=== PATIENT | male | born 1980 | race Caucasian/White ===

== ENCOUNTER 2019-12-15 05:08 | Emergency (ER) | payer OTHER, SELFPAY ==
[2019-12-15 05:11] VITALS: BP 138/102; PULSE 85; RESP 16; TEMP 36.7; O2SAT 95; BMI 43.2
--- NOTE | 2019-12-15 05:20 | W.ED.EYEPROB ---
HPI - Eye Problem General: Chief complaint: Eye Problems Stated complaint: EVAL Time Seen by Provider: 12/15/19 05:20 History of Present Illness: chief complaint: eye pain, eye redness and eye injury Onset (ago): day(s) (yesterday) Onset description: sudden Duration: constant Location: both eyes Eye Symptoms: burning, redness and pain Mechanism: UV exposure Severity: severe If Pain, Quality: burning Associated symptoms: Denies fever(s) Review of Systems Const: Denies: fever or chills Eyes: Reports: blurry vision, eye discomfort and eye redness ENMT: Denies: throat pain, ear pain, tinnitus or nasal discharge Card: Denies: chest pain or palpitations Resp: Denies: shortness of breath PFSH ED PFSH: Statuses (acute, chronic, etc) shown below reflect problem list status as previously entered and may not be historically accurate Social History Smoking and tobacco status: current some day smoker Physical Exam Const: GENERAL APPEARANCE: in distress ORIENTATION/CONSCIOUSNESS: Yes awake, Yes oriented to person, Yes oriented to place and Yes oriented to time HENMT: COMMON NORMALS: normocephalic, external nose normal and moist oral mucous membranes HEAD & SCALP: normocephalic FACE & SINUS: face symmetric NOSE: external nose normal Eye: COMMON NORMALS: PERRL and EOMs intact bilaterally PERIORBITAL: periorbital findings normal CORNEA: Yes fluorescein used PUPIL: Yes PERRL Chest: COMMONS NORMALS: inspection of chest normal Resp: COMMON NORMALS: clear to auscultation bilaterally AUSCULTATION: clear to auscultation bilaterally Cardio: COMMON NORMALS: regular rate and regular rhythm RATE: regular rate RHYTHM: regular rhythm GI: COMMON NORMALS: soft to palpation PALPATION: Yes soft Neuro: SENSORIUM/ORIENTATION: Yes oriented to person, Yes oriented to place and Yes oriented to time Course Vital Signs: Vital signs: Vital Signs Temperature 98.1 F 12/15/19 05:11 Pulse Rate 85 12/15/19 05:11 Respiratory Rate 16 12/15/19 05:11 Blood Pressure 138/102 12/15/19 05:11 Pulse Oximetry 95 12/15/19 05:11 Discharge Plan Discharge Patient Disposition: Home, Self-Care Clinical Impression: UV keratitis Qualifiers: Laterality: bilateral Qualified Code(s): H16.133 - Photokeratitis, bilateral Condition: Stable Prescriptions: New Percocet 7.5-325 mg tablet 1 tab PO Q6H PRN (Reason: pain) Qty: 7 RF: 0 erythromycin 5 mg/gram (0.5 %) ointment 1 applic ophthalmic (eye) Q6H 5 Days Qty: 3.5 RF: 0 No Action Prilosec OTC 20 mg Tablet,Delayed Release (Dr/Ec) 20 mg PO BID RF: 0 Discharge Orders: Discharge Order (Routine); Ordered 12/15/19 Ordered By: Zia Weldon Referrals: Hoang Vargas MD [Physician] - 1-3 days Edwina Linder ARNP [Family Provider] - Discharge Diet: Usual diet Discharge Activity: Increase activity as tolerated Patient Instructions: Corneal Flash Barrera (ED) Activity Restrictions/Additional Instructions: Call the ophthalmology clinic on [address] for a follow up appointment. Return for worsening pain despite treatment, worsening vision despite treatment, other concerning symptoms. Coding Level of Care Code ED Channel Marketing Coordinator for Devyn Varela
[2019-12-15] MEDS: tetracaine 0.5% Op Soln 4 mL Btl 1 DROP EYE-BOTH (05:30)
[2019-12-15] MEDS: fluorescein 1 mg Strip EYE-BOTH (05:30)
[2019-12-15 05:56] VITALS: RESP 12; O2SAT 98
[2019-12-15] MEDS: oxyCODONE-APAP 5-325 mg Tablet 2 TAB PO (05:56)
[2019-12-15 06:01] VITALS: BP 133/90; PULSE 85; RESP 18; O2SAT 96
== END 2019-12-15 06:03 | disposition home or self-care (01) ==
PROVIDERS: Emergency Provider Emergency Medicine; Family Provider Nurse Practitioner Family
DX: H16.133 Photokeratitis, bilateral (principal); W89.8XXA Exposure to other man-made visible and ultraviolet light, initial encounter; F17.210 Nicotine dependence, cigarettes, uncomplicated
CPT/HCPCS: 99281; 99283

== ENCOUNTER 2019-12-31 10:43 | Outpatient (CLI) | payer OTHER, SELFPAY ==
[2019-12-31 11:10] LABS: Basophils # 0.1 10^3/uL (0.0-0.1); Basophils % 0.6 %; Eosinophils # 0.2 10^3/uL (0.0-0.8); Eosinophils % 2.6 %; Hematocrit 45.4 % (42.0-52.0); Hemoglobin 14.9 g/dL (11.7-16.6); Lymphocytes # 2.1 10^3/uL (0.8-4.8); Lymphocytes % 21.8 %; Mean Corpuscular HGB Conc 32.8 g/dL (30.0-36.0); Mean Corpuscular Hemoglobin 29.9 pg (28.0-34.0); Mean Corpuscular Volume 91.2 fL (80-94); Mean Platelet Volume 10.3 fL (7.4-10.4); Monocytes # 0.6 10^3/uL (0.2-0.9); Monocytes % 5.9 %; Neutrophils # 6.5 10^3/uL (1.8-7.7); Neutrophils % 68.8 %; Nucleated Red Blood Cells % 0 %; Platelet Count 336 10^3/cmm (130-400); Red Blood Count 4.98 10^6/uL (4.1-5.3); Red Cell Distribution Width 14.4 % (12.1-15.1); White Blood Count 9.4 10^3/uL (4.0-10.0)
[2019-12-31 11:31] LABS: Estmated Average Glucose 123; Hemoglobin A1C 5.9 % (4.0-6.0)
[2019-12-31 11:35] LABS: Alanine Aminotransferase 31 U/L (0-41); Albumin Level 4.5 g/dL (3.5-5.2); Alkaline Phosphatase 86 IU/L (40-130); Anion Gap 16.7 (5-19); Aspartate Amino Transferase 22 U/L (0-40); Blood Urea Nitrogen 14 mg/dL (6-20); Calcium 9.9 mg/dL (8.5-10.5); Carbon Dioxide 28 mmol/L (22-29); Chloride 99 mmol/L (98-107); Cholesterol 259 mg/dL (0-200); Globulin 3.4 g/dL (1.3-4.6); Glomerular Filtration Rate 126.9 mL/min (90-130); Glucose 99 mg/dL (65-115); HDL Cholesterol 35 mg/dL (60-100); LDL Cholesterol Calculated 183 mg/dL (50-129); LDL HDL Ratio 5.23 RATIO (0.00-3.22); Potassium 4.7 mmol/L (3.5-5.1); Sodium 139 mmol/L (136-145); Thyroid Stimulating Hormone 0.79 uIU/mL (0.27-4.20); Total Bilirubin 0.3 mg/dL (0.15-1.2); Total Protein 7.9 g/dL (6.6-8.7); Triglycerides 205 mg/dL (0-150)
== END 2019-12-31 10:44 | disposition home or self-care (01) ==
LOC: LAB 10:47
PROVIDERS: Family Provider Nurse Practitioner Family; Visit Provider Nurse Practitioner Family
DX: R73.03 Prediabetes (principal)
CPT/HCPCS: 36415; 80053; 80061; 83036; 84443; 85025

== ENCOUNTER 2020-04-21 11:43 | Emergency (ER) | payer OTHER, SELFPAY ==
[2020-04-21 11:51] VITALS: BP 140/93; PULSE 99; RESP 16; TEMP 36.7; O2SAT 94; BMI 41.8
--- NOTE | 2020-04-21 12:04 | ED_ITS ---
HPI - General Adult General: Chief complaint: General Medical Stated complaint: [facility] sent over Time Seen by Provider: 04/21/20 11:49 Source: patient Mode of arrival: ambulatory Limitations: no limitations History of Present Illness: HPI narrative: 89-year-old male who states he has had suicidal thoughts for weeks and difficulty sleeping and anxiety. Patient was sent over here from [facility] for medicines to help him sleep. Patient was seen over there and they have a safe plan he states he has no plan and they feel safe with him going home and his is here who was at his appointment with [facility] as well. He denies any plans currently. He denies any worsening improving factors. Associated symptoms: Deny chest pain, dyspnea, headache(s), nausea, rash or vomiting Review of Systems Const: Denies: fever(s), chills, body aches or change in appetite Eyes: Denies: blurry vision or eye discomfort ENMT: Denies: throat pain or dental pain Card: Denies: chest pain Resp: Denies: dyspnea GI: Denies: abdominal pain, nausea, vomiting or diarrhea : Denies: dysuria Musc: Denies: neck pain or back pain Skin/Breast: Denies: rash Neuro: Denies: headache(s) Psych: Reports: anxiety and depression Jasson/Lymph: Denies: easy bruising All/Imm: Denies: urticaria PFSH ED PFSH: Social History Smoking and tobacco status: current some day smoker Physical Exam Const: COMMON NORMALS: no acute distress, patient oriented x3 and healthy appearing HENMT: COMMON NORMALS: normocephalic and atraumatic HEAD & SCALP: normocephalic and atraumatic Eye: COMMON NORMALS: Equal, round and reactive pupils present and EOMs intact bilaterally PUPIL: Yes Equal, round and reactive pupils present Neck/C-Spine: COMMON NORMALS: full ROM and supple Chest: COMMONS NORMALS: normal inspection of the chest and normal palpation of entire chest wall Resp: COMMON NORMALS: normal respiratory effort, No retractions, No use of accessory muscles and clear to auscultation bilaterally AUSCULTATION: clear to auscultation bilaterally Cardio: COMMON NORMALS: regular rate, regular rhythm and No murmurs present (Cardio) RATE: regular rate RHYTHM: regular rhythm GI: COMMON NORMALS: Normal to inspection, nondistended, normoactive bowel sounds present, Soft to palpation, non-tender and no masses PALPATION: Yes Soft to palpation Extremity: COMMON NORMALS: normal to inspection and full ROM Neuro: COMMON NORMALS: patient oriented x3, moves all extremities and no focal motor deficits Psych: COMMON NORMALS: mental status grossly normal, Normal thought process present and cooperative MOOD & AFFECT: Yes depressed mood and Yes anxious THOUGHT PROCESS: Normal thought process present Skin: COMMON NORMALS: no rashes or lesions noted and no wounds GENERAL SKIN EXAM: no rashes or lesions noted Course Vital Signs: Vital signs: Vital Signs Temperature 98.1 F 04/21/20 11:51 Pulse Rate 99 04/21/20 11:51 Respiratory Rate 16 04/21/20 11:51 Blood Pressure 140/93 04/21/20 11:51 Pulse Oximetry 94 04/21/20 11:51 MDM - General Adult MDM Narrative: Medical decision making narrative: 40-year-old male presents with depression along with nightmares. Patient seen in the ER by Dr. Santana who feels patient is safe for discharge home. Patient does have a safe plan and follow-up with [facility]. We will start him on prazosin for his nightmares. He is to follow-up with [facility] and return to ER if he does have any suicidal thoughts. He understands and agrees to this plan. Lab Data: Labs: Lab Results 04/21/20 04/21/20 04/21/20 Range/Units 12:10 12:10 13:08 WBC 8.0 (4.0-10.0) 10^3/ uL RBC 4.96 (4.1-5.3) 10^6/u L Hgb 15.7 (11.7-16.6) g/dL Hct 47.6 (42.0-52.0) % MCV 96.0 H (80-94) fL MCH 31.7 (28.0-34.0) pg MCHC 33.0 (30.0-36.0) g/dL RDW 14.1 (12.1-15.1) % Plt Count 302 (130-400) 10^3/c mm MPV 10.4 (7.4-10.4) fL Neut % (Auto) 71.5 % Lymph % (Auto) 15.4 % [place] % (Auto) 10.1 % Eos % (Auto) 2.1 % Baso % (Auto) 0.7 % Neut # (Auto) 5.7 (1.8-7.7) 10^3/u L Lymph # (Auto) 1.2 (0.8-4.8) 10^3/u L [place] # (Auto) 0.8 (0.2-0.9) 10^3/u L Eos # (Auto) 0.2 (0.0-0.8) 10^3/u L Baso # (Auto) 0.1 (0.0-0.1) 10^3/u L Nucleated RBC % (a uto) 0 % Nucleated RBCs # 0.0 /100WBC Sodium 141 (136-145) mmol/L Potassium 4.2 (3.5-5.1) mmol/L Chloride 103 (98-107) mmol/L Carbon Dioxide 26 (22-29) mmol/L Anion Gap 16.2 (5-19) BUN 10 (6-20) mg/dL Creatinine 0.7 (0.7-1.2) mg/dL GFR Calculation 126.2 (90-130) mL/min Glucose 130 H (65-115) mg/dL Calculated Osmolal ity 290 (285-295) mOsm/k g Calcium 9.6 (8.5-10.5) mg/dL Total Bilirubin 0.4 (0.15-1.2) mg/dL AST 34 (0-40) U/L ALT 46 H (0-41) U/L Alkaline Phosphata se 102 (40-130) IU/L Total Protein 7.9 (6.6-8.7) g/dL Albumin 4.9 (3.5-5.2) g/dL Globulin 3.0 (1.3-4.6) g/dL Salicylates < 0.3 L (3-10) mg/dL Urine Opiates Scre en Negative (Negative) ng/mL Acetaminophen < 5.0 L (10-30) ug/mL Ur Barbiturates Sc reen Negative (Negative) ng/mL Ur Phencyclidine S crn Negative (Negative) ng/mL Ur Amphetamines Sc reen Negative (Negative) ng/mL U Benzodiazepines Scrn Negative (Negative) ng/mL Urine Cocaine Scre en Negative (Negative) ng/mL U Marijuana (THC) Screen Negative (Negative) ng/mL Ethyl Alcohol < 10 (0-10) mg/dL Discharge Plan Discharge Patient Disposition: Home, Self-Care Clinical Impression: Nightmare disorder Depression Qualifiers: Depression Type: unspecified Qualified Code(s): F32.9 - Major depressive disorder, single episode, unspecified Condition: Stable Prescriptions: New prazosin 1 mg capsule 1 mg PO DAILY Qty: 30 RF: 0 No Action omeprazole magnesium [Prilosec OTC] 20 mg Tablet,Delayed Release (Dr/Ec) 20 mg PO BID RF: 0 Multiple Vitamins Tablet 1 tab PO DAILY RF: 0 bupropion HCl 150 mg tablet sustained-release 12 hr 150 mg PO BID RF: 0 trazodone 50 mg tablet 50 mg PO BEDTIME RF: 0 Discharge Orders: Discharge Order (Routine); Ordered 04/21/20 Ordered By: Tyrell Cooper Discharge Diet: Advance as tolerated Discharge Activity: Resume usual activity Patient Instructions: Depression (ED) Coding Level of Care Code ED Pulmonary Disease Specialist for Devyn Fwd Exam Comprehensive
[2020-04-21 12:16] LABS: Basophils # 0.1 10^3/uL (0.0-0.1); Basophils % 0.7 %; Eosinophils # 0.2 10^3/uL (0.0-0.8); Eosinophils % 2.1 %; Hematocrit 47.6 % (42.0-52.0); Hemoglobin 15.7 g/dL (11.7-16.6); Lymphocytes # 1.2 10^3/uL (0.8-4.8); Lymphocytes % 15.4 %; Mean Corpuscular Hemoglobin 31.7 pg (28.0-34.0); Mean Platelet Volume 10.4 fL (7.4-10.4); Monocytes # 0.8 10^3/uL (0.2-0.9); Monocytes % 10.1 %; Neutrophils # 5.7 10^3/uL (1.8-7.7); Neutrophils % 71.5 %; Nucleated Red Blood Cells % 0 %; Platelet Count 302 10^3/cmm (130-400); Red Blood Count 4.96 10^6/uL (4.1-5.3); Red Cell Distribution Width 14.1 % (12.1-15.1)
[2020-04-21] MEDS: LORazepam 1 mg Tablet PO (12:30)
[2020-04-21 12:34] LABS: Alanine Aminotransferase 46 U/L (0-41); Albumin Level 4.9 g/dL (3.5-5.2); Alkaline Phosphatase 102 IU/L (40-130); Anion Gap 16.2 (5-19); Aspartate Amino Transferase 34 U/L (0-40); Blood Urea Nitrogen 10 mg/dL (6-20); Calcium 9.6 mg/dL (8.5-10.5); Carbon Dioxide 26 mmol/L (22-29); Chloride 103 mmol/L (98-107); Glomerular Filtration Rate 126.2 mL/min (90-130); Glucose 130 mg/dL (65-115); Osmolality Calculated 290 mOsm/kg (285-295); Potassium 4.2 mmol/L (3.5-5.1); Sodium 141 mmol/L (136-145); Total Bilirubin 0.4 mg/dL (0.15-1.2); Total Protein 7.9 g/dL (6.6-8.7)
[2020-04-21 12:51] LABS: Acetaminophen < 5.0 ug/mL (10-30); Alcohol Level < 10 mg/dL (0-10); Salicylate < 0.3 mg/dL (3-10)
[2020-04-21 13:44] LABS: Amphetamines Screen Urine Negative (Negative); Barbiturates Screen Urine Negative (Negative); Benzodiazepines Screen Urine Negative (Negative); Cocaine Screen Urine Negative (Negative); Opiate Screen Urine Negative (Negative); PCP Screen Urine Negative (Negative); THC Screen Urine Negative (Negative)
[2020-04-21 14:12] VITALS: BP 131/106; PULSE 91; RESP 16; O2SAT 95
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
== END 2020-04-21 14:13 | disposition home or self-care (01) ==
PROVIDERS: Emergency Provider Emergency Medicine
DX: F32.9 Major depressive disorder, single episode, unspecified (principal); F51.5 Nightmare disorder; F17.210 Nicotine dependence, cigarettes, uncomplicated
CPT/HCPCS: 12345; 36415; 80053; 80306; 80307; 85025; 99282; 99283

== ENCOUNTER → 2021-10-25 12:15 | Outpatient (BNVA) | payer OTHER, SELFPAY | PROVIDERS: Visit Provider Nurse Practitioner | DX: M25.571 Pain in right ankle and joints of right foot (principal); S99.911A Unspecified injury of right ankle, initial encounter; W10.9XXA Fall (on) (from) unspecified stairs and steps, initial encounter | CPT/HCPCS: 73610 ==